=== PATIENT | male | born 1995 | race Caucasian/White ===

== ENCOUNTER 2023-07-11 07:45 | Emergency (ER) | payer SELFPAY ==
[~2023-07-11] VITALS: Ht 172.7 cm; Wt 127.7 kg
[~2023-07-11 07:45] MED LIST: PREDNISONE20 MG PO; ZITHROMAX 250M250 MG PO
[2023-07-11 07:52] VITALS: BP 142/95; TEMP 97.9
[2023-07-11] MEDS ORDERED: PREDNISONE10 MG PO (08:10)
[2023-07-11] MEDS ORDERED: COLCRYS0.6 MG PO (08:10)
[2023-07-11] MEDS ORDERED: INDOCIN50 MG PO (08:10)
[2023-07-11 08:28] VITALS: PULSE 111
== END 2023-07-11 08:29 | disposition home or self-care (01) ==
LOC: COL.ER 07:45
DX: M10.9 Gout, unspecified (principal)
CPT/HCPCS: J7512